=== PATIENT | female | born 1950 | race Caucasian/White ===

== ENCOUNTER 2016-12-06 06:58 | Day surgery (SDC) | payer OTHER ==
--- NOTE | ~2016-12-06 | EGD ---
EGD REPORT [facility] [address] [address] NAME: JAYDA BENSON : 54 STATUS : REG [facility] [place] PAT#: [id number] AGE: 65 ADM/REG DATE : 12/06/16 MR#: [id number] REPORT SERV DATE: 12/06/16 DICTATED BY: NANETTE CROSS DATE: 12/06/16 REPORT STATUS : Draft [facility] BY: [facility] DATE: 12/06/16 [facility] Patient Name: Jayda Benson Date of : 1950 Attending MD: NANETTE CROSS MD Procedure Date No Time: 12/06/2016 Procedure: Colonoscopy Indications: Screening for colorectal malignant neoplasm Referring MD: JOY RUIZ MD Medicines: as per anesthesia Complications: No immediate complications. Procedure: Pre-Anesthesia Assessment: - ASA Grade Assessment: III - A patient with severe systemic disease. After I obtained informed consent, the scope was passed under direct vision. Throughout the procedure, the patient's blood pressure, pulse, and oxygen saturations were monitored continuously. The PCF [id number] was introduced through the anus and advanced to the cecum, identified by appendiceal orifice and ileocecal valve. The colonoscopy was somewhat difficult due to significant looping and a tortuous colon. The patient tolerated the procedure. The quality of the bowel preparation was fair. Findings: The perianal and digital rectal examinations were normal. The colon (entire examined portion) appeared normal. Impression: - The entire examined colon is normal. Recommendation: - Repeat colonoscopy in 10 years for surveillance. Procedure Code(s): --- Professional --- 47093, Colonoscopy, flexible, proximal to splenic flexure; diagnostic, with or without collection of specimen(s) by brushing or washing, with or without colon decompression (separate procedure) Diagnosis Code(s): --- Professional --- Z12.11, Encounter for screening for malignant neoplasm of colon CPT copyright 2013 [employer]. All rights reserved. EGD REPORT [facility] [address] [id number] NAME: JAYDA BENSON : [birth year] STATUS : REG [facility] [place] PAT#: [id number] AGE: 65 ADM/REG DATE : 12/06/16 MR#: [id number] REPORT SERV DATE: 12/06/16 DICTATED BY: NANETTE CROSS. DATE: 12/06/16 REPORT STATUS : Draft TRANSCRIBED BY: [employer] DATE: 12/06/16 The codes documented in this report are preliminary and upon demolition engineer review may be revised to meet current compliance requirements. NANETTE CROSS MD 12/06/2016 9:13 AM This report has been signed electronically. Number of Addenda: 0 Note Initiated On: 12/06/2016 8:44 AM Scope Withdrawal Time 0 hours 7 minutes 26 seconds [id number] [id number]
[~2016-12-06 06:58] MED LIST: ASAB PO; BREO ELLIPTA 21 EACH INH; CELEXA10 PO; COMBIVENT RESPIM4 GM; FLEX PO; MULTIPLE VIT PO; OS500+D PO; PRILO PO; VOLT75 PO; ZOCOR20 PO; ZYRTEC ALLGY10 MG PO
== END 2016-12-06 23:59 | disposition home health service (06) ==
LOC: DMU 06:58
PROVIDERS: Internal Medicine Gastroenterology
PROC: 0DJD8ZZ Inspection of Lower Intestinal Tract, Via Natural or Artificial Opening Endoscopic (ICD-10-PCS; principal; 2016-12-06 08:30)
DX: Z12.11 Encounter for screening for malignant neoplasm of colon (principal); J45.909 Unspecified asthma, uncomplicated; E78.00 Pure hypercholesterolemia, unspecified; K21.9 Gastro-esophageal reflux disease without esophagitis; Z87.891 Personal history of nicotine dependence; I20.9 Angina pectoris, unspecified; M19.90 Unspecified osteoarthritis, unspecified site; F41.9 Anxiety disorder, unspecified; F32.9 Major depressive disorder, single episode, unspecified; Z98.890 Other specified postprocedural states